=== PATIENT | female | born 1985 | race Caucasian/White ===

== ENCOUNTER → 2020-09-22 14:00 | Outpatient (REF) | payer MEDICAID, SELFPAY ==
--- NOTE | 2020-09-22 14:00 | CA_ITS ---
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 The visually estimated ejection fraction is between 50-55%. - A mechanical prosthetic mitral valve is present. Based on gradients, likely normal function. - There is mild aortic valve regurgitation. Findings Left Ventricle Normal left ventricular cavity size. There is mildly increased left ventricular wall thickness. The left ventricular systolic function is low normal. The visually estimated ejection fraction is between 50-55%. The calculated ejection fraction is 50% by biplane method. Diastolic function is indeterminate on the basis of available data. Right Ventricle Normal right ventricular cavity size. There is mild to moderately decreased right ventricular systolic function. Atria Both atria are normal in size. Aortic Valve There is a normal trileaflet aortic valve. There is mild calcification of the aortic valve. There is no aortic valve stenosis. There is mild aortic valve regurgitation. Mitral Valve A mechanical prosthetic mitral valve is present. Mean gradient across the mitral valve was 2 mm Hg at heart rate of 67/Min. This is well within normal limits. Leaflet motion is not well visualized. Due to shadowing from the prosthesis, cannot assess for regurgitation.Based on gradients, likely normal function. Pulmonic Valve The pulmonic valve was not well visualized. Tricuspid Valve Normal tricuspid valve structure. There is mild tricuspid valve regurgitation. The pulmonary artery systolic pressure is normal. Great Vessels The asc aorta is normal in size. There seems to be effacement of the sino tubular ridge. Venous The inferior vena cava is normal in size and collapses greater than 50% with inspiration. Pericardium/Pleural There is no evidence of pericardial effusion. Prior Study Comparison Changes noted compared to prior study dated: 02/26/2019. LVEF appears better. Measurements 2D Linear Measurements RVIDd: 2.64 RVIDd Index: 1.38 IVSd: 1.57 0.6-0.9/0.6-1.0 cm LVIDd: 4.36 3.9-5.3/4.2-5.9 cm LVIDd Index: 2.28 2.4-3.2/2.2-3.1 cm/m2 LVIDs: 3.22 2.0-3.6 cm LVPWd: 1.38 0.7-1.1 cm Ao Root: 3.20 2.1-3.5 cm LA Diam: 3.60 2.7-3.8/3.0-4.0 cm LAIDs Index: 1.88 1.5-2.3 cm/m2 LV Mass: 320.05 67-162/88-224 g LV Mass Index: 167.56 43-95/49-115 g/m2 LVOT Diam: 2.40 3.0+(-)1.3 cm 2D Systolic Function EF 4C: 53.90 >55% EF 2C: 50.60 >55% EF BiP: 50.10 >55% Mitral Valve MV VTI: 0.25 MV Pk Jeramie: 1.23 MV Mn Jeramie: 0.66 MV Pk Grad: 6.00 MV Mn Grad: 2.00 MV Pk E: 0.79 MV PK A: 1.10 MV Decel Time: 322.00 E/A: 0.70 PHT: 60.00 MVA PHT: 3.67 MVA Continuity: 2.38 Decel [place]: 4.24 Aortic Valve AoV Pk Jearmie: 1.00 AoV Mn Jeramie: 0.68 AoV VTI: 0.22 AoV Pk Grad: 4.00 Aov Mn Grad: 2.00 ADDY Cont.VTI: 2.60 AI Pk Jeramie: 4.71 AI [place]: 2.78 LVOT LVOT Pk Jeramie: 0.65 LVOT Mn Jeramie: 0.41 LVOT VTI: 0.13 LVOT Pk Grad: 2.00 LVOT Mn Grad: 1.00 LVOT Diam: 2.40 LVOT Area: 4.52 Diastolic Function MV Pk E: 0.79 MV Pk A: 1.10 E/A: 0.70 Tricuspid Valve TR Pk Jeramie: 2.21 TR Pk Grad: 20.00 RA Press: 3.00 RVSP: 23.00 Great Vessels Aorta Ao Root-2D: 3.20 2.0-3.7 cm Ao Asc: 3.40 2.1-3.4 cm Updated in Other Vendor System with Status of Final Brian Vance MD electronically signed on 09/23/2020 8:53:39 AM with status of Final
== END ==
LOC: HO.CARD 14:00
PROVIDERS: Visit Provider Internal Medicine
DX: I42.9 Cardiomyopathy, unspecified (principal); Q87.40 Marfan syndrome, unspecified; Z95.2 Presence of prosthetic heart valve; Z98.890 Other specified postprocedural states
CPT/HCPCS: 93306

== ENCOUNTER → 2020-10-07 12:58 | Outpatient (BNVA) | payer MEDICAID, SELFPAY | PROVIDERS: Visit Provider Internal Medicine ==

== ENCOUNTER 2020-10-28 07:57 | Outpatient (REF) | payer MEDICAID, SELFPAY ==
--- NOTE | ~2020-10-28 | CT_ITS ---
EXAMINATION: CT ANGIOGRAPHY CHEST CT ANGIOGRAPHY ABDOMEN CLINICAL INFORMATION: Dissection of aorta. COMPARISON: CT chest with IV contrast 02/28/2019 TECHNIQUE: 5 mm thin axial and reformatted 8 mm thin sagittal coronal images of chest and abdomen were obtained following rapid IV administration of 70 mL Omnipaque 350. 3D imaging was performed on a separate workstation. DLP: 294 mGy-cm FINDINGS: CHEST: Mediastinum: There is an aortic stent visualized extending from proximal ascending aorta approximately 4.0 cm above the aortic valve all the way up to the descending thoracic aorta, below the diaphragm, in the proximal abdominal aorta region. The ascending aorta measures 3.3 x 3.1 cm just below the stent. The patent lumen in the arch measures 2.5 cm and with the stent measures 3.1 cm. The descending thoracic aorta measures 4.3 x 4.3 cm and with the stent measures 3.4 x 3.7 cm. No visible contrast extension through the stents seen in the thoracic aorta. The size of the entire thoracic aorta is stable and unchanged to 02/28/2019. There is no suggestion of recurrent dissection. There is minimal thrombus surrounding the stent in the descending thoracic aorta, stable and unchanged. The heart size is normal. No pericardial effusion seen. There is a AV valve prosthesis in place. The right atrium and right ventricle appear slightly prominent, similar to previous study. There are anterolateral origins of right brachiocephalic and left common carotid artery proximal to the stent margin in ascending aorta. The left subclavian artery origin is patent and arises in between the 2 stents. There is no abnormal mediastinal lymph nodes or mass. The central trachea and the bronchi appear widely patent. The thyroid lobes are symmetrical and normal. Lungs: The lungs are well expanded and clear of acute process. Minimal atelectatic changes as seen in the left lower lobe adjacent to the aorta. Pleura: No pleural effusion, thickening or calcification. Axilla: No abnormal lymph nodes seen. The chest wall appears unremarkable. There are median sternotomy sutures from previous valvular prosthesis. Osseous Structures: No gross bony abnormality is seen. ABDOMEN: Liver and Gallbladder: The liver is homogeneous in density and normal size and contour. No focal lesion or intrahepatic ductal dilatation seen. The gallbladder is not visualized likely from previous surgical resection. Spleen: Unremarkable. Bilateral Adrenal Glands: Unremarkable. Kidneys: Both kidneys are normal size and shape. A low-lying left kidney is noted. The right kidney is normal place. There is normal cortical thickness. There is no hydronephrosis or radiopaque calculi. Vascular: There is a aortic stent extending in the proximal abdominal aorta. The mid abdominal aorta is dilated below the renal arteries measuring 4.4 x 3.5 cm on axial image 73/6. The celiac axis is patent arising at the level of the right renal artery. Superior mesenteric artery is patent and arises from anterior aspect of the aorta. Inferior mesenteric artery is small and not visualized The left renal artery arises slightly inferior related to its normal position. GLADYS artery is not visualized. Lymph Nodes There are no abnormal lymph nodes seen. GI Tract: Visualized bowel loops are grossly unremarkable. Abdominal Wall: The abdominal wall is slightly deformed likely from extensive surgery. Osseous Structures. There is mild smooth S-shaped scoliosis of the thoracolumbar spine. No lytic or sclerotic process seen. Mild degenerative disc changes at L5-S1 disc level. 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 A small Tarlov cyst is seen in the S3 vertebra as well. CT/CT angio abdomen IMPRESSION: 1. Aortic stent extends from the proximal ascending aorta all the way into the proximal abdominal aorta. No recurrent dissection or aneurysm is seen dissection. Origins of thoracic arch are widely patent. 2. Origin of bilateral renal arteries, celiac axis and superior mesenteric artery are widely patent. The GLADYS is not well visualized. 3. Minimal atelectatic changes, left lower lobe. 4. No acute process seen in the abdomen. 5. Mild constipation. The gallbladder has been surgically removed.
[2020-10-28] MEDS: iohexoL 350 MG/ML 100 ML INFUS..BTL IV (08:53)
== END 2020-10-28 07:58 | disposition home or self-care (01) ==
LOC: HO.CT 07:57
PROVIDERS: Visit Provider Internal Medicine
DX: I71.00 Dissection of unspecified site of aorta (principal)
CPT/HCPCS: 71275; 74175; Q9967

== ENCOUNTER → 2021-05-13 14:32 | Outpatient (BNVA) | payer MEDICAID, SELFPAY | PROVIDERS: PCP Internal Medicine; Visit Provider Internal Medicine ==

== ENCOUNTER → 2021-11-02 14:39 | Outpatient (BNVA) | payer MEDICAID, SELFPAY | PROVIDERS: PCP Internal Medicine; Visit Provider Internal Medicine | DX: I42.8 Other cardiomyopathies (principal); I71.00 Dissection of unspecified site of aorta; I48.0 Paroxysmal atrial fibrillation; I95.0 Idiopathic hypotension; Q87.40 Marfan syndrome, unspecified; Z79.01 Long term (current) use of anticoagulants; Z79.82 Long term (current) use of aspirin; Z79.899 Other long term (current) drug therapy; Z86.73 Personal history of transient ischemic attack (TIA), and cerebral infarction without residual deficits; Z95.4 Presence of other heart-valve replacement | CPT/HCPCS: 93005; 99212 ==

== ENCOUNTER → 2022-04-21 08:36 | Outpatient (REF) | payer MEDICAID, SELFPAY ==
--- NOTE | ~2022-04-21 | CT_ITS ---
EXAMINATION: CT ANGIOGRAM OF THE CHEST, ABDOMEN WITHOUT AND WITH CONTRAST CLINICAL INFORMATION: Thoracic and abdominal aortic aneurysm. History of dissection. History of aortic stent graft COMPARISON: CTA chest from 10/28/2020 TECHNIQUE: Multidetector volumetric CT imaging of the chest, abdomen, and pelvis was performed before and after the administration of 70 mL of Omnipaque 350 intravenous contrast without immediate adverse reactions. 3D POSTPROCESSING: Multiple 3-D angiographic images were processed from the initial data set by the [facility] under concurrent physician supervision. DOSE LOWERING TECHNIQUES: This CT examination was performed using dose optimization techniques as appropriate, variously including the following: - Automated exposure control - Adjustment of mA and/or kV according to patient size (this includes techniques or standardized protocols for targeted exams where dose is matched to indication/reason for exam; i.e. extremities or head) - Use of iterative reconstruction technique DLP: 230 mGy-cm. FINDINGS: VASCULAR: THORACIC AORTA: Postsurgical and post endovascular changes within the ascending thoracic aorta which is stable in appearance. Postsurgical changes seen at the aortic root and proximal ascending thoracic aorta. There is reimplantation of the right brachiocephalic artery and left common carotid artery to the proximal ascending thoracic aorta which are widely patent. Thoracic stent graft is seen extending from the mid ascending thoracic aorta through the aortic arch and descending thoracic aorta terminating in the proximal abdominal aorta just below the level the diaphragms. Stent graft is in stable position and widely patent. There is some mural thrombus seen within the stent graft at the level the aortic arch which is unchanged. The ostium of the left subclavian artery is occluded. There is a left common carotid artery to proximal left subclavian artery bypass graft which is widely patent. The mid and distal segments of the left subclavian artery are widely patent. The descending thoracic aorta demonstrates aneurysmal dilation with residual thrombus within the aneurysm sac. There is no evidence of endoleak. Aneurysm has a maximum diameter of 6.1 cm on the transaxial images. The aneurysm is increased in size, previously measuring 4.9 cm on the transaxial images. ABDOMINAL AORTA: Abdominal aorta is tortuous with fusiform juxtarenal aortic aneurysm. Aneurysm has a maximum diameter 4.4 cm, which is stable compared to the prior exam. The celiac artery, superior mesenteric artery and bilateral renal arteries are patent without significant stenosis. Inferior mesenteric artery appears chronically occluded. No evidence of dissection. Visualized common iliac arteries are patent NONVASCULAR: LUNGS: The lungs are clear with no evidence of inflammation or nodules. MEDIASTINUM: Heart is mildly enlarged. There is a prosthetic mitral valve. No mediastinal lymphadenopathy PLEURA: There is no pleural effusion. No pleural mass or thickening. LIVER, GALLBLADDER, AND BILIARY TREE: The liver is normal in size, shape, and attenuation. No focal hepatic lesion or biliary ductal dilatation is present. Status post cholecystectomy PANCREAS: Unremarkable. SPLEEN: Unremarkable. ADRENAL GLANDS: Unremarkable. KIDNEYS AND URETERS: The kidneys are normal in size, shape, and attenuation. No hydronephrosis, hydroureter, or calculi seen. No perinephric stranding. GASTROINTESTINAL TRACT: The visualized bowel loops are unremarkable ABDOMINAL WALL: Postsurgical scarring is seen along the midline of the anterior abdominal wall. There is a large [place] ventral wall hernia containing loops of bowel LYMPH NODES: Normal. OSSEOUS STRUCTURES: Unremarkable. CT/CT angio chest aorta IMPRESSION: Stable postsurgical changes within the ascending thoracic aorta including the branch vessels as described above. Thoracic stent graft extending from the ascending thoracic aorta through the descending thoracic aorta is patent. There is fusiform aneurysm of the descending thoracic aorta which is increasing in size, currently measuring 6.1 cm, previously 4.9 cm. No evidence of obvious endoleak Fusiform juxtarenal abdominal aortic aneurysm which is stable in size measuring 4.4 cm.
--- NOTE | 2022-04-21 08:38 | CA_ITS ---
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 Low normal LV systolic function with mild LVH with impaired relaxation filling pattern 2. Mild aortic regurgitation 3. Normally function mechanical mitral prosthesis with mean gradient of 2 mmHg 4. Normal RV systolic pressure 5. No gross pericardial effusion Findings Left Ventricle Normal left ventricular cavity size. There is mildly increased left ventricular wall thickness. The left ventricular systolic function is low normal. The visually estimated ejection fraction is between 50-55%. There is paradoxical septal motion consistent with post-operative status. Spectral Doppler is indicative of an impaired relaxation filling pattern. Right Ventricle Mildly increased right ventricular cavity size. There is normal right ventricular systolic function. Atria The left atrium is mildly dilated. Interatrial shunt cannot be excluded. The right atrium is mildly dilated. Aortic Valve Normal aortic valve structure and function. There is no aortic valve stenosis. There is mild aortic valve regurgitation. Mitral Valve A mechanical prosthetic mitral valve is present. The prosthetic mitral valve appears to be functioning normally. Pulmonic Valve The pulmonic valve was not well visualized. Tricuspid Valve Likely normal tricuspid valve structure and function. There is mild tricuspid valve regurgitation. The right ventricular systolic pressure is 18 mmHg. There is no evidence of pulmonary hypertension. Great Vessels All visible segments of the aorta are normal in size. The pulmonary artery was not well visualized. Venous The inferior vena cava is normal in size. Pericardium/Pleural There is no evidence of pericardial effusion. Prior Study Comparison No significant change compared to prior study dated: 09/22/2020. Measurements 2D Linear Measurements IVSd: 1.34 0.6-0.9/0.6-1.0 cm LVIDd: 4.13 3.9-5.3/4.2-5.9 cm LVIDd Index: 2.16 2.4-3.2/2.2-3.1 cm/m2 LVIDs: 2.75 2.0-3.6 cm LVPWd: 1.32 0.7-1.1 cm LV Mass: 286.52 67-162/88-224 g LV Mass Index: 150.01 43-95/49-115 g/m2 LVOT Diam: 2.40 3.0+(-)1.3 cm 2D Systolic Function EF 4C: 47.00 >55% EF 2C: 57.30 >55% EF BiP: 51.80 >55% Mitral Valve MV VTI: 0.35 MV Pk Jeramie: 1.11 MV Mn Jeramie: 0.63 MV Pk Grad: 5.00 MV Mn Grad: 2.00 MV Pk E: 0.82 MV PK A: 0.70 MV Decel Time: 338.00 E/A: 1.20 E'Lateral: 6.20 E'Medial: 5.98 E/E' Med: 13.80 E/E' Lat: 13.30 PHT: 99.00 MVA PHT: 2.22 MVA Continuity: 2.38 Decel [place]: 2.43 Aortic Valve AoV Pk Jeramie: 1.07 AoV Mn Jeramie: 0.76 AoV VTI: 0.27 AoV Pk Grad: 5.00 Aov Mn Grad: 3.00 ADDY Cont.VTI: 3.05 AI Pk Jeramie: 4.18 AI [place]: 2.06 LVOT LVOT Pk Jeramie: 0.66 LVOT Mn Jeramie: 0.45 LVOT VTI: 0.18 LVOT Pk Grad: 2.00 LVOT Mn Grad: 1.00 LVOT Diam: 2.40 LVOT Area: 4.52 Diastolic Function MV Pk E: 0.82 MV Pk A: 0.70 E/A: 1.20 E'Medial: 5.98 E/E' Med: 13.80 E' Laterial: 6.20 E/E' Lat: 13.30 Right Ventricle TAPSE (mm): 20.40 TVS' Jeramie: 8.81 Tricuspid Valve TR Pk Jeramie: 1.92 TR Pk Grad: 15.00 RA Press: 3.00 RVSP: 18.00 Great Vessels Aorta Sinus of Valsalva: 3.70 2.0-3.[address] [place]: 3.31 1.7-3.4 cm Ao Asc: 3.50 2.1-3.4 cm Updated in Other Vendor System with Status of Final Jeffrey Walls MD electronically signed on 04/22/2022 4:56:20 PM with status of Final
== END ==
LOC: HO.CARD 08:36
PROVIDERS: PCP Internal Medicine; Visit Provider Internal Medicine
DX: I71.00 Dissection of unspecified site of aorta (principal); Z95.4 Presence of other heart-valve replacement
CPT/HCPCS: 71275; 74175; 93306

== ENCOUNTER → 2022-06-07 10:26 | Outpatient (BNVA) | payer MEDICAID, SELFPAY | PROVIDERS: PCP Internal Medicine; Visit Provider Surgery Vascular Surgery | DX: I71.00 Dissection of unspecified site of aorta (principal) | CPT/HCPCS: 99202 ==

== ENCOUNTER → 2022-06-23 14:24 | Outpatient (BNVA) | payer MEDICAID, SELFPAY | PROVIDERS: PCP Internal Medicine; Visit Provider Internal Medicine | DX: I42.8 Other cardiomyopathies (principal); I48.0 Paroxysmal atrial fibrillation; I71.23 Aneurysm of the descending thoracic aorta, without rupture; Q87.40 Marfan syndrome, unspecified; Z86.73 Personal history of transient ischemic attack (TIA), and cerebral infarction without residual deficits; Z95.4 Presence of other heart-valve replacement; Z79.01 Long term (current) use of anticoagulants; Z79.82 Long term (current) use of aspirin; Z79.899 Other long term (current) drug therapy | CPT/HCPCS: 99212 ==

== ENCOUNTER 2023-06-05 14:27 | Outpatient (AMB) | payer MEDICAID, SELFPAY ==
[2023-06-05 14:32] VITALS: BP 90/58; PULSE 58; BMI 24.3
--- NOTE | 2023-06-05 14:32 | MHC.OFFVIS ---
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 Fairly complex history with Marfan syndrome and various cardiac and vascular issues. To recall, she has Marfan syndrome and had symptomatic severe mitral regurgitation. This led to mitral valve replacement in 2015. She was doing reasonably okay but had an episode of stroke. This apparently happened in the setting of missing a few Coumadin doses from lack of transport. Then she was taken to [facility]. She recovered well without any significant residual deficit. She has had off and on symptoms of feeling short of breath and has been this way for a long time. More recently, she had CT scan of chest abdomen that showed enlargement in the descending thoracic aorta and she was sent to [facility]. She states nothing was done and she just needed to go for a follow-up in 1 year which is coming up soon. Otherwise, occasional palpitations. [facility] Medical History Arterial hypotension Cholecystectomy planned Embolic stroke Marfans syndrome NICM (nonischemic cardiomyopathy) PAF (paroxysmal atrial fibrillation) Surgical History H/O eye surgery Status post mitral valve replacement with metallic valve History of cardiac catheterization History of abdominal aortic aneurysm repair History of aortic valve repair History of mitral valve replacement (~2015) Family History Father CVD (cardiovascular disease) Mother Hypertension Social History Household Members: Significant Other and Children Household Members Other:: Boyfriend and son Housing: Apartment Alcohol intake: never Patient Tobacco Use Status: Never used Tobacco Review of Systems Const Denies weakness ENT Denies dizziness Card Denies chest pain, Denies chest pain with activity, Denies syncope, Denies rapid heart rate, Denies pedal edema, Denies edema, Denies leg edema, Denies lightheadedness, Denies palpitations, Denies dyspnea, Denies dyspnea on exertion and Denies orthopnea Resp Denies cough, Denies dyspnea and Denies dyspnea on exertion GI Denies hematochezia and Denies change in stool character Musc Denies abnormal gait, Denies muscle cramps, Denies muscle weakness, Denies numbness, Denies radiating pain into limb and Denies tingling Neuro Denies abnormal gait, Denies dizziness, Denies syncope, Denies numbness, Denies tingling and Denies weakness Endo Denies palpitations Physical Exam Vital Signs: Last Vital Signs Pulse 58 06/05/23 14:32 BP 90/58 L 06/05/23 14:32 BMI result Body Mass Index 24.3 Const General: comfortable HEENT Other: Unremarkable Neck Neck: Yes normal visual inspection Chest Chest palpation & inspection: normal inspection of the chest Resp Auscultation: clear to auscultation bilaterally Cardio Other: Normal prosthetic valve clicks. Heart sounds: Murmur heart sound present systolic III/ GI Palpation (GI): Soft to palpation Back/Spine/Pelvis Other: unremarkable Skin Lesions: other Neuro General: other Extrem General: Yes other Psych Mental Status: other Assessment & Plan Assessment & Plan (1) Marfans syndrome: Code(s): Q87.40 - Marfan's syndrome, unspecified Plan: She has multiple clinical findings of Marfan syndrome. Will need lifelong follow-up. Should avoid all future pregnancies. (2) Status post mitral valve replacement with metallic valve: Code(s): Z95.4 - Presence of other heart-valve replacement Plan: Last echocardiogram with normally functioning mitral prosthesis with mean gradient of 2 mm Hg. Continue aspirin, Coumadin. Infective endocarditis prophylaxis as needed. (3) Dissection of aorta: Code(s): I71.00 - Dissection of unspecified site of aorta Qualifiers: Aortic location: thoracoabdominal aorta Qualified Code(s): I71.03 - Dissection of thoracoabdominal aorta Plan: She was previously referred to [facility] vascular surgery. Per patient, recommended follow-up only and no interventions performed. Will contact them for a follow-up appointment. (4) NICM (nonischemic cardiomyopathy): Code(s): I42.8 - Other cardiomyopathies Plan: In the recent echocardiogram, LVEF was 50-55%. In the past as low as 30-40%. Continue beta-blockers. Not able to give any other medications like Entresto as she also runs very low blood pressures. Also listed to be on midodrine as needed. (5) PAF (paroxysmal atrial fibrillation): Code(s): I48.0 - Paroxysmal atrial fibrillation Plan: No recent episodes. (6) Embolic stroke: Code(s): I63.9 - Cerebral infarction, unspecified Plan: This happened in the setting of missing some Coumadin doses due to lack of transport. INR during admission was 1.7. Target should be closer to 3. CTA had then shown abrupt right M1 cut off. Attempted interventional treatment but not successful. She was intubated and treated in the ICU. CT brain had shown infarct in the right side MCA territory. Blood cultures were negative. ESR not elevated. Mild CRP elevation considered to be nonspecific. No recent issues. Orders: Orders CA echo transthoracic complete Today Z95.4 - Presence of other heart-valve replacement Medications: Changed From midodrine do not give last dose of day after 6PM or within 4 hrs of bedtime 10 mg PO BID 90 days PRN 180 tabs 1RF hypotension To midodrine do not give last dose of day after 6PM or within 4 hrs of bedtime 10 mg PO BID PRN hypotension Coding Level of Care Code Est Pt Level 4 (22461) Diagnoses Marfans syndrome Q87.40 Status post mitral valve replacement with metallic valve Z95.4 Dissection of thoracoabdominal aorta I71.03 Aortic location: thoracoabdominal aorta NICM (nonischemic cardiomyopathy) I42.8 PAF (paroxysmal atrial fibrillation) I48.0 Embolic stroke I63.9
== END 2023-06-05 14:51 | disposition home or self-care (01) ==
PROVIDERS: PCP Internal Medicine; Referring Provider Internal Medicine; Visit Provider Internal Medicine
DX: Q87.40 Marfan syndrome, unspecified (principal); Z95.4 Presence of other heart-valve replacement; I71.03 Dissection of thoracoabdominal aorta; I42.8 Other cardiomyopathies; I48.0 Paroxysmal atrial fibrillation; I63.9 Cerebral infarction, unspecified
CPT/HCPCS: 93010; 99214

== ENCOUNTER → 2023-06-05 14:27 | Outpatient (BNVA) | payer MEDICAID, SELFPAY | PROVIDERS: PCP Internal Medicine; Referring Provider Internal Medicine; Visit Provider Internal Medicine | DX: I71.03 Dissection of thoracoabdominal aorta (principal); I42.8 Other cardiomyopathies; I48.0 Paroxysmal atrial fibrillation; Z95.4 Presence of other heart-valve replacement; I63.9 Cerebral infarction, unspecified | CPT/HCPCS: 93005; 99212 ==

== ENCOUNTER → 2023-07-04 12:45 | Outpatient (REF) | payer MEDICAID, SELFPAY ==
--- NOTE | 2023-07-04 12:47 | CA_ITS ---
Transthoracic Echocardiogram Patient (Last, First, Middle): Lupis Abdul, Gender: Female Date of : 1985 Age: 37 Procedure Date: 07/04/2023 Procedure Type: Transthoracic Echocardiogram Location: OP Height: 172.72 cm Weight: 72.58 kg BSA: 1.86 m2 Heart Rate: 61 bpm BP: 102 / 68 mmHg Transportation Department Head: SB Referring MD: Brian Vance MD Symptoms: Z95.4 - Presence of other heart-valve replacement Study Quality: Adequate ECG Rhythm: Sinus Conclusions: - The left ventricular systolic function is mildly decreased. The calculated ejection fraction is 45% by biplane method. - A mechanical prosthetic mitral valve is present. The prosthetic mitral valve appears to be functioning normally. - Echo density 1.1 x 0.9cm at apical anterior wall; cannot exclude thrombus. Findings Procedure Information Contrast agent, definity, is being given per protocol without apparent complications. Left Ventricle Normal left ventricular cavity size. The left ventricular systolic function is mildly decreased. The calculated ejection fraction is 45% by biplane method. There is mild global hypokinesis. Diastolic function is indeterminate on the basis of available data. There is moderate septal asymmetric hypertrophy. Echo density 1.1 x 0.9cm at apical anterior wall; cannot exclude thrombus. Right Ventricle Mildly increased right ventricular cavity size. There is mildly decreased right ventricular systolic function. Atria The left atrium was not well visualized. The right atrium is normal in size. Aortic Valve There is a normal trileaflet aortic valve. There is no aortic valve stenosis. There is mild aortic valve regurgitation. Mitral Valve A mechanical prosthetic mitral valve is present. The prosthetic mitral valve appears to be functioning normally. Pulmonic Valve The pulmonic valve is likely normal. Tricuspid Valve There is mild tricuspid valve regurgitation. There is no evidence of pulmonary hypertension. Great Vessels The aorta was not well visualized. The aortic annulus and sinuses of valsalva are normal in size. Venous The inferior vena cava was not well visualized. Pericardium/Pleural There is no evidence of pericardial effusion. Prior Study Comparison Changes noted compared to prior study dated: 04/21/2022. See comments on thrombus. Possibly seen in last study (image 104), but without contrast, difficult to be sure. Measurements 2D Linear Measurements IVSd: 1.31 0.6-0.9/0.6-1.0 cm LVIDd: 4.55 3.9-5.3/4.2-5.9 cm LVIDd Index: 2.45 2.4-3.2/2.2-3.1 cm/m2 LVIDs: 3.22 2.0-3.6 cm LVPWd: 0.85 0.7-1.1 cm LA Diam: 4.50 2.7-3.8/3.0-4.0 cm LAIDs Index: 2.42 1.5-2.3 cm/m2 LV Mass: 216.37 67-162/88-224 g LV Mass Index: 116.33 43-95/49-115 g/m2 LVOT Diam: 2.40 3.0+(-)1.3 cm 2D Systolic Function EF 4C: 40.10 >55% EF 2C: 48.70 >55% EF BiP: 44.70 >55% Mitral Valve MV VTI: 0.29 MV Pk Jeramie: 0.99 MV Mn Jeramie: 0.63 MV Pk Grad: 4.00 MV Mn Grad: 2.00 MV Pk E: 1.07 MV PK A: 0.79 MV Decel Time: 277.00 E/A: 1.40 PHT: 81.00 MVA PHT: 2.72 MVA Continuity: 1.90 Decel Swisher: 3.87 Aortic Valve AoV Pk Jeramie: 1.04 AoV Mn [place]amie: 0.69 AoV VTI: 0.23 AoV Pk Grad: 4.00 Aov Mn Grad: 2.00 ADDY Cont.VTI: 2.35 AI Pk Jeramie: 4.44 AI VTI: 2.09 AI Swisher: 2.55 LVOT LVOT Pk [place]amie: 0.55 LVOT Mn [place]amie: 0.40 LVOT VTI: 0.12 LVOT Pk Grad: 1.00 LVOT Mn Grad: 1.00 LVOT Diam: 2.40 LVOT Area: 4.52 Diastolic Function MV Pk E: 1.07 MV Pk A: 0.79 E/A: 1.40 Right Ventricle TAPSE (mm): 13.20 TVS' Jeramie: 10.00 Tricuspid Valve TR Pk [place]amie: 2.26 TR Pk Grad: 20.00 RA Press: 3.00 Great Vessels Aorta Sinus of Valsalva: 3.40 2.0-3.5 cm Ao Asc: 3.70 2.1-3.4 cm Pulmonary Valve PV Pk Jeramie: 0.56 Peak PV Grad: 1.00 Updated in Other Vendor System with Status of Final Brian Vance MD electronically signed on 07/06/2023 4:26:20 PM with status of Final
== END ==
LOC: HO.CARD 12:45
PROVIDERS: PCP Internal Medicine; Visit Provider Internal Medicine
DX: Z95.4 Presence of other heart-valve replacement (principal)
CPT/HCPCS: 93306; Q9957

== ENCOUNTER → 2023-07-04 12:47 | Outpatient (BNV) | payer MEDICAID, SELFPAY | PROVIDERS: PCP Internal Medicine; Visit Provider Internal Medicine | DX: I35.1 Nonrheumatic aortic (valve) insufficiency (principal); I36.1 Nonrheumatic tricuspid (valve) insufficiency; Z95.4 Presence of other heart-valve replacement | CPT/HCPCS: 93306 ==

== ENCOUNTER 2023-08-15 14:32 | Outpatient (AMB) | payer MEDICAID, SELFPAY ==
[2023-08-15 14:38] VITALS: BP 100/72; PULSE 72; BMI 24.1
--- NOTE | 2023-08-15 14:38 | A.OFFVIS_ITS ---
Intake Vital Signs 08/15/23 14:38 Height 5 ft 8 in Weight 158 lb 11.725 oz BMI 24.1 BP 100/72 Blood Pressure Location Lt brachial Position Sitting Pulse 72 Pulse Source Pulse Oximeter Intake Visit Reasons: follow up echo Intake Note: follow up echo/ patient started with slight chest pain 2 days ago. 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 She has had an increase in SOB and recently had a pain in her left side that has slowly gotten better. Relieved with tylenol. She does not appear fluid overloaded. [facility] Medical History Arterial hypotension Cholecystectomy planned Embolic stroke Marfans syndrome NICM (nonischemic cardiomyopathy) PAF (paroxysmal atrial fibrillation) Surgical History H/O eye surgery Status post mitral valve replacement with metallic valve History of cardiac catheterization History of abdominal aortic aneurysm repair History of aortic valve repair History of mitral valve replacement (~2015) Family History Father CVD (cardiovascular disease) Mother Hypertension Social History Household Members: Significant Other and Children Household Members Other:: Boyfriend and son Housing: Apartment Alcohol intake: never Patient Tobacco Use Status: Never used Tobacco Physical Exam Vital Signs: Last Vital Signs Pulse 72 08/15/23 14:38 BP 100/72 08/15/23 14:38 BMI result Body Mass Index 24.1 Const General: healthy appearing and no acute distress Orientation/consciousness: patient oriented x3 HEENT Head: Yes normal to inspection Eyes General: appearance normal, both eyes and all related structures Neck Neck: Yes normal visual inspection Chest Chest palpation & inspection: normal inspection of the chest Resp Effort & Inspection: normal respiratory effort Auscultation: clear to auscultation bilaterally Cardio Jugular venous distension: no JVD Palpation: normal PMI Rate: regular rate Rhythm: regular rhythm Heart sounds: S1 normal heart sound present, S2 normal heart sound present, no click, no gallops, no murmurs and no rubs GI Inspection: Yes normal to inspection Palpation (GI): Soft to palpation Skin General skin exam: no rashes or lesions noted Neuro General: patient oriented x3 Extrem General: Yes normal to inspection Psych Appearance: grossly normal Assessment & Plan Assessment & Plan (1) Dissection of aorta: Code(s): I71.00 - Dissection of unspecified site of aorta (2) Marfans syndrome: Code(s): Q87.40 - Marfan syndrome, unspecified Plan She is going to touch base with [facility] in regards to her care and return as planned to see Dr. Vance in November. Coding Level of Care Code Est Pt Level 3 (79041) Diagnoses Dissection of aorta I71.00 Marfans syndrome Q87.40
== END 2023-08-15 15:25 | disposition home or self-care (01) ==
PROVIDERS: PCP Internal Medicine; Visit Provider Nurse Practitioner
DX: I71.00 Dissection of unspecified site of aorta (principal); Q87.40 Marfan syndrome, unspecified
CPT/HCPCS: 99213

== ENCOUNTER → 2023-08-15 14:32 | Outpatient (BNVA) | payer MEDICAID, SELFPAY | PROVIDERS: PCP Internal Medicine; Visit Provider Nurse Practitioner | DX: I71.00 Dissection of unspecified site of aorta (principal); Q87.40 Marfan syndrome, unspecified | CPT/HCPCS: 99212 ==

== ENCOUNTER 2024-11-11 14:44 | Outpatient (AMB) | payer MEDICAID, SELFPAY ==
--- NOTE | 2024-11-11 14:45 | A.OFFVIS_ITS ---
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 Fairly complex history with Marfan syndrome and various cardiac and vascular issues. We have followed her for the last decade or so. To recall, she has Marfan syndrome and had symptomatic severe mitral regurgitation. This led to mitral valve replacement in 2015. She was doing reasonably okay but had an episode of stroke. This apparently happened in the setting of missing a few Coumadin doses from lack of transport. Then she was taken to [facility]. She recovered well without any significant residual deficit. S Then we referred her to [facility] for follow-up of the thoracic aneurysm. It seems that she underwent surgery for the same last year. States that she recovered well. No new concerns at this time. From cardiac, she is doing good. In spite of all her medical issues, seems to be generally getting along. [facility] Medical History Arterial hypotension Cholecystectomy planned Embolic stroke Marfans syndrome NICM (nonischemic cardiomyopathy) PAF (paroxysmal atrial fibrillation) Surgical History H/O eye surgery Status post mitral valve replacement with metallic valve History of cardiac catheterization History of abdominal aortic aneurysm repair History of aortic valve repair History of mitral valve replacement (~2015) Family History Father CVD (cardiovascular disease) Mother Hypertension Social History Household Members: Significant Other and Children Household Members Other:: Boyfriend and son Housing: Apartment Alcohol intake: never Patient Tobacco Use Status: Never used Tobacco Review of Systems Const Denies chills, Denies fatigue, Denies fever(s), Denies weight gain and Denies weight loss ENT Denies dizziness Card Denies chest pain, Denies leg edema, Denies lightheadedness, Denies palpitations, Reports dyspnea, Denies dyspnea on exertion, Denies orthopnea and Denies other Resp Denies cough, Reports dyspnea and Denies dyspnea on exertion GI Denies hematochezia and Denies change in stool character Musc Denies abnormal gait, Denies muscle weakness, Denies numbness, Denies radiating pain into limb and Denies tingling Neuro Denies abnormal gait, Denies dizziness, Denies numbness and Denies tingling Endo Denies fatigue and Denies palpitations Physical Exam Vital Signs: Last Vital Signs Pulse 77 11/11/24 14:46 BP 134/54 L 11/11/24 14:46 BMI result Body Mass Index 25.1 Const General: comfortable and no acute distress Orientation/consciousness: patient oriented x3 HEENT Other: Unremarkable Head: Yes normal to inspection Neck Neck: Yes normal visual inspection Chest Chest palpation & inspection: normal inspection of the chest Resp Auscultation: clear to auscultation bilaterally Cardio Other: Prosthetic heart sounds present. Heart sounds: Murmur heart sound present systolic GI Palpation (GI): Soft to palpation Back/Spine/Pelvis Other: unremarkable Skin General skin exam: no rashes or lesions noted Neuro General: patient oriented x3 Extrem General: Yes normal to inspection Psych Mental Status: mental status grossly normal Office Procedures EKG Details: EKG with underlying sinus rhythm at 77/Min; cannot exclude old septal infarct but could be from body habitus; [place] [id number], Complete Assessment & Plan Assessment & Plan (1) Marfans syndrome: Code(s): Q87.40 - Marfan syndrome, unspecified Category: Medical Plan: She has multiple clinical findings of Marfan syndrome. Will need lifelong follow-up. Should avoid all future pregnancies. We discussed about this today as well. (2) Status post mitral valve replacement with metallic valve: Code(s): Z95.4 - Presence of other heart-valve replacement Category: Surgical Plan: Last echocardiogram with normally functioning mitral prosthesis with mean gradient of 2 mm Hg. Continue aspirin, Coumadin. Infective endocarditis prophylaxis as needed. Repeat echocardiogram. (3) Dissection of aorta: Code(s): I71.00 - Dissection of unspecified site of aorta Plan: Follow up with vascular surgery at [facility] [place]. In 2023, underwent endovascular repair of thoracic aorta at [facility]. (4) NICM (nonischemic cardiomyopathy): Code(s): I42.8 - Other cardiomyopathies Category: Medical Plan: In the last echocardiogram, LVEF was 50-55%. In the past as low as 30-40%. Continue beta-blockers. Not able to give any other medications like Entresto as she also runs very low blood pressures. Was also taking midodrine in the past but not listed anymore. Today's blood pressure seems okay. (5) PAF (paroxysmal atrial fibrillation): Code(s): I48.0 - Paroxysmal atrial fibrillation Category: Medical Plan: No recent episodes. (6) Embolic stroke: Code(s): I63.9 - Cerebral infarction, unspecified Category: Medical Plan: This happened in the setting of missing some Coumadin doses due to lack of transport. INR during admission was 1.7. Target should be closer to 3. CTA had then shown abrupt right M1 cut off. Attempted interventional treatment but not successful. She was intubated and treated in the ICU. CT brain had shown infarct in the right side MCA territory. Blood cultures were negative. ESR not elevated. Mild CRP elevation considered to be nonspecific. No recent issues. Orders: Orders CA echo transthoracic complete Today Z95.4 - Presence of other heart-valve replacement Coding Level of Care Code Est Pt Level 4 (14938) Complex EM visit Add On G2211 Diagnoses Marfans syndrome Q87.40 Status post mitral valve replacement with metallic valve Z95.4 Dissection of aorta I71.00 NICM (nonischemic cardiomyopathy) I42.8 PAF (paroxysmal atrial fibrillation) I48.0 Embolic stroke I63.9 CPT Codes EKG - CPT: 38801-[id number], Complete ([id number])
[2024-11-11 14:46] VITALS: BP 134/54; PULSE 77; BMI 25.1
== END 2024-11-11 15:07 | disposition home or self-care (01) ==
PROVIDERS: PCP Internal Medicine; Visit Provider Internal Medicine
DX: Q87.40 Marfan syndrome, unspecified (principal); Z95.4 Presence of other heart-valve replacement; I71.00 Dissection of unspecified site of aorta; I42.8 Other cardiomyopathies; I48.0 Paroxysmal atrial fibrillation; I63.9 Cerebral infarction, unspecified
CPT/HCPCS: 93010; 99214; G2211

== ENCOUNTER → 2024-11-11 14:44 | Outpatient (BNVA) | payer MEDICAID, SELFPAY | PROVIDERS: PCP Internal Medicine; Visit Provider Internal Medicine | DX: Q87.40 Marfan syndrome, unspecified (principal); I71.00 Dissection of unspecified site of aorta; I42.8 Other cardiomyopathies; I48.0 Paroxysmal atrial fibrillation; I63.9 Cerebral infarction, unspecified; Z95.4 Presence of other heart-valve replacement; Z79.01 Long term (current) use of anticoagulants | CPT/HCPCS: 93005; 99212 ==

== ENCOUNTER → 2024-12-24 14:58 | Outpatient (REF) | payer MEDICAID, SELFPAY ==
--- NOTE | 2024-12-24 15:01 | CA_ITS ---
Transthoracic Echocardiogram Patient (Last, First, Middle): Lupis Abdul, Gender: Female Date of : 1985 Age: 39 Procedure Date: 12/24/2024 Procedure Type: Transthoracic Echocardiogram Location: OP Height: 172.72 cm Weight: 74.84 kg BSA: 1.88 m2 Heart Rate: 69 bpm BP: 134 / 60 mmHg Joint Filler: SB Referring MD: Brian Vance MD Symptoms: Z95.4 - Presence of other heart-valve replacement Study Quality: Adequate ECG Rhythm: Sinus Conclusions: - The left ventricular systolic function is mildly decreased. The calculated ejection fraction is 50% by biplane method. - A mechanical prosthetic mitral valve is present. The prosthetic mitral valve appears to be functioning normally. Findings Procedure Information Contrast agent, definity, is being given per protocol without apparent complications. Left Ventricle Normal left ventricular cavity size. The left ventricular systolic function is mildly decreased. The calculated ejection fraction is 50% by biplane method. There is mild global hypokinesis. There is mild septal asymmetric hypertrophy. Echodensity at the apical anterior wall (1.2x0.8cm); uncertain etiology; possible old thrombus. Unchanged from prior study. Right Ventricle Normal right ventricular cavity size. There is mildly decreased right ventricular systolic function. Atria The left atrium is normal in size. The right atrium is normal in size. Aortic Valve There is a normal trileaflet aortic valve. There is no aortic valve stenosis. There is mild aortic valve regurgitation. Mitral Valve A mechanical prosthetic mitral valve is present. The prosthetic mitral valve appears to be functioning normally. There is no mitral valve regurgitation. Pulmonic Valve The pulmonic valve is likely normal. Tricuspid Valve Normal tricuspid valve structure. There is mild tricuspid valve regurgitation. There is no evidence of pulmonary hypertension. Great Vessels The asc aorta is normal in size. Venous The inferior vena cava was not well visualized. Pericardium/Pleural There is no evidence of pericardial effusion. Prior Study Comparison No significant change compared to prior study dated: 07/04/2023. Measurements 2D Linear Measurements IVSd: 1.26 0.6-0.9/0.6-1.0 cm LVIDd: 4.65 3.9-5.3/4.2-5.9 cm LVIDd Index: 2.47 2.4-3.2/2.2-3.1 cm/m2 LVIDs: 3.29 2.0-3.6 cm LVPWd: 0.80 0.7-1.1 cm LA Diam: 4.10 2.7-3.8/3.0-4.0 cm LAIDs Index: 2.18 1.5-2.3 cm/m2 LV Mass: 209.49 67-162/88-224 g LV Mass Index: 111.43 43-95/49-115 g/m2 LVOT Diam: 3.10 3.0+(-)1.3 cm 2D Systolic Function EF 4C: 42.80 >55% EF 2C: 55.40 >55% EF BiP: 50.10 >55% Mitral Valve MV VTI: 0.19 MV Pk Jeramie: 1.02 MV Mn Jeramie: 0.62 MV Pk Grad: 4.00 MV Mn Grad: 2.00 MV Pk E: 0.66 MV PK A: 0.80 MV Decel Time: 153.00 E/A: 0.80 PHT: 45.00 MVA PHT: 4.89 MVA Continuity: 3.71 Decel [place]: 4.32 Aortic Valve AoV Pk Jeramie: 0.88 AoV Pk Grad: 3.00 ADDY: 4.10 AI Pk Jeramie: 4.38 AI [place]: 2.81 LVOT LVOT Pk Jeramie: 0.52 LVOT Mn Jeramie: 0.37 LVOT VTI: 0.09 LVOT Pk Grad: 1.00 LVOT Mn Grad: 1.00 LVOT Diam: 3.10 LVOT Area: 7.55 Diastolic Function MV Pk E: 0.66 MV Pk A: 0.80 E/A: 0.80 Right Ventricle TAPSE (mm): 17.50 Tricuspid Valve TR Pk Jeramie: 2.12 TR Pk Grad: 18.00 RA Press: 3.00 RVSP: 21.00 Great Vessels Aorta Sinus of Valsalva: 3.40 2.0-3.5 cm Ao Asc: 2.90 2.1-3.4 cm Pulmonary Valve PV Pk Jeramie: 0.65 Peak PV Grad: 2.00 Updated in Other Vendor System with Status of Final Brian Vance MD electronically signed on 12/25/2024 1:13:36 PM with status of Final
== END ==
LOC: HO.CARD 14:58
PROVIDERS: PCP Internal Medicine; Visit Provider Internal Medicine
DX: Z95.4 Presence of other heart-valve replacement (principal)
CPT/HCPCS: 93306; Q9957

== ENCOUNTER → 2024-12-24 15:01 | Outpatient (BNV) | payer MEDICAID, SELFPAY | PROVIDERS: PCP Internal Medicine; Visit Provider Internal Medicine | DX: I42.2 Other hypertrophic cardiomyopathy (principal); I35.1 Nonrheumatic aortic (valve) insufficiency; I36.1 Nonrheumatic tricuspid (valve) insufficiency; Z95.2 Presence of prosthetic heart valve | CPT/HCPCS: 93306 ==

== ENCOUNTER 2025-05-07 13:18 | Outpatient (AMB) | payer MEDICAID, SELFPAY ==
[2025-05-07 13:45] VITALS: BP 122/62; PULSE 84; BMI 25.5
--- NOTE | 2025-05-07 13:45 | MHC.OFFVIS ---
Vital Signs 05/07/25 13:45 Height 5 ft 8 in Weight 167 lb 8.821 oz BMI 25.5 BP 122/62 Blood Pressure Location Lt brachial Position Sitting Pulse 84 Pulse Source Pulse Oximeter Intake Visit Reasons: 6m follow up Allergies No Known Allergies (No Known Allergies*) Allergy (Verified 08/15/23 14:43) Medication List - Last Reconciled 05/07/25 by Brian Vance MD aspirin 81 mg PO DAILY atorvastatin 80 mg PO DAILY levothyroxine 50 mcg PO DAILY metoprolol succinate ER 25 mg PO DAILY warfarin 5 mg PO DAILY HPI Comments Details: Lupis returns for follow-up. Fairly complex history with Marfan syndrome and various cardiac and vascular issues. We have followed her for the last decade or so. To recall, she has Marfan syndrome and had symptomatic severe mitral regurgitation. This led to mitral valve replacement in 2015. She was doing reasonably okay but had an episode of stroke. This apparently happened in the setting of missing a few Coumadin doses from lack of transport. Then she was taken to [facility]. She recovered well without any significant residual deficits. Then we referred her to [facility] for follow-up of the thoracic aneurysm. It seems that she underwent surgery for the same last year. Seems to have recovered well. She had another appointment follow-up last week and we need to get that report. Otherwise, from the cardiac standpoint he is doing fine. No new concerns. [facility] Medical History Arterial hypotension Cholecystectomy planned Embolic stroke Marfans syndrome NICM (nonischemic cardiomyopathy) PAF (paroxysmal atrial fibrillation) Surgical History H/O eye surgery Status post mitral valve replacement with metallic valve History of cardiac catheterization History of abdominal aortic aneurysm repair History of aortic valve repair History of mitral valve replacement (~2015) Family History Father CVD (cardiovascular disease) Mother Hypertension Social History Household Members: Significant Other and Children Household Members Other:: Boyfriend and son Housing: Apartment Alcohol intake: never Patient Tobacco Use Status: Never used Tobacco Review of Systems Const Denies weakness ENT Denies dizziness Card Denies chest pain, Denies chest pain with activity, Denies syncope, Denies rapid heart rate, Denies pedal edema, Denies edema, Denies leg edema, Denies lightheadedness, Denies palpitations, Denies dyspnea, Denies dyspnea on exertion and Denies orthopnea Resp Denies cough, Denies dyspnea and Denies dyspnea on exertion GI Denies hematochezia and Denies change in stool character Musc Denies abnormal gait, Denies muscle cramps, Denies muscle weakness, Denies numbness, Denies radiating pain into limb and Denies tingling Neuro Denies abnormal gait, Denies dizziness, Denies syncope, Denies numbness, Denies tingling and Denies weakness Endo Denies palpitations Physical Exam Vital Signs: Last Vital Signs Pulse 84 05/07/25 13:45 BP 122/62 05/07/25 13:45 BMI result Body Mass Index 25.5 Const General: comfortable and no acute distress Orientation/consciousness: patient oriented x3 HEENT Other: Unremarkable Head: Yes normal to inspection Neck Neck: Yes normal visual inspection Chest Chest palpation & inspection: normal inspection of the chest Resp Auscultation: clear to auscultation bilaterally Cardio Other: Prosthetic heart sounds present. Heart sounds: Murmur heart sound present systolic GI Palpation (GI): Soft to palpation Back/Spine/Pelvis Other: unremarkable Skin General skin exam: no rashes or lesions noted Neuro General: patient oriented x3 Extrem General: Yes normal to inspection Psych Mental Status: mental status grossly normal Assessment & Plan Assessment & Plan (1) Marfans syndrome: Code(s): Q87.40 - Marfan syndrome, unspecified Category: Medical Plan: She has multiple clinical findings of Marfan syndrome. Will need lifelong follow-up. Should avoid all future pregnancies. Has been discussed many times in the past. (2) Status post mitral valve replacement with metallic valve: Code(s): Z95.4 - Presence of other heart-valve replacement Category: Surgical Plan: Stable on echocardiogram. (3) Dissection of aorta: Code(s): I71.00 - Dissection of unspecified site of aorta Plan: Followed up at [facility] vascular surgery. In 2023, underwent endovascular repair of thoracic aorta at [facility]. We will get recent notes. (4) NICM (nonischemic cardiomyopathy): Code(s): I42.8 - Other cardiomyopathies Category: Medical Plan: In the last echocardiogram, LVEF was 50%. In the past as low as 30-40%. Continue beta-blockers. Not able to give any other medications like Entresto as she also runs very low blood pressures. Was also taking midodrine in the past but not listed anymore. Today's blood pressure seems okay. (5) PAF (paroxysmal atrial fibrillation): Code(s): I48.0 - Paroxysmal atrial fibrillation Category: Medical Plan: No recent episodes. (6) Embolic stroke: Code(s): I63.9 - Cerebral infarction, unspecified Category: Medical Plan: This happened in the setting of missing some Coumadin doses due to lack of transport. INR during admission was 1.7. Target should be closer to 3. CTA had then shown abrupt right M1 cut off. Attempted interventional treatment but not successful. She was intubated and treated in the ICU. CT brain had shown infarct in the right side MCA territory. Blood cultures were negative. ESR not elevated. Mild CRP elevation considered to be nonspecific. She is fully recovered from the above episode and no recent issues. Coding Level of Care Code Est Pt Level 4 (91666) Complex EM visit Add On G2211 Diagnoses Marfans syndrome Q87.40 Status post mitral valve replacement with metallic valve Z95.4 Dissection of aorta I71.00 NICM (nonischemic cardiomyopathy) I42.8 PAF (paroxysmal atrial fibrillation) I48.0 Embolic stroke I63.9
--- OUTSIDE RECORDS SUMMARY | 2025-05-07 14:11 | XMS_ITS | Encounter Summary ---
Author Organization [facility] Address [address] [place] [address] Phone Care Team Providers Care Beet End Supervisor Name Role Phone Rosanne Reynolds MD Primary Care Provider [phone] Keri Ball [facility] [email or web address] Encounter Details Date Type Department Care Team (Late st Contact Info) Description 03/22/2024 Procedure Pass [facility] [address] [place] [address] Social History Tobacco Use Types Packs/Day Years Used Date Smoking Tobacco: Former Smokeless Tobacco: Former Comments:smoked for short ti me as a teenager (1-2 years) then quit. Alcohol Use Standard Drinks/Week Comments Never 0 (1 standard drink = 0.6 oz pur e alcohol) Education Answer Date Recorded Are you interested in more education? Not on kahlil e 01/13/2023 Are you concerned about learning? Not on file 01/13/2023 No 01/13/2023 No 01/13/2023 Food Answer Date Recorded Within the past 6 months we worried whether our food would run out before we got money to buy more. Never True 03/15/2024 Within the past 6 months the food we bought just didn't last and we didn't have enough money to get more. Never True Residential Stability Answer Date Recor ded What is your housing situation today? I have deonte malik 03/15/2024 How many times have you move d in the past 12 months? Zero (I did not move) 03/15/2024 Paying for Meds Answer Date Recorded Do you have trouble paying for medicines? No 03/15/2024 Paying Utility Bills Answer Date Record ed Do you have trouble paying your heating or elect ricity bill? No 03/15/2024 Transportation Answer Date Recorded Has the lack of transportati on kept you from medical appointments or from getting medications? No 03/15/2024 Digital Access Answer Date Recorded No 03/15/2024 Yes 03/15/2024 Do you have reliable internet access at home? Ye s 03/15/2024 Do you have a device (e.g., phone, tablet, computer) with a working camera? Yes 03/15/2024 Intimate Partner Violence Answer Date R ecorded Are you denied basic needs s uch as food, clothing, or medical care? No 03/16/2024 In the past 12 months have y ou been in a relationship with a person who hurts, threatens, or tries to control you? No 03/16/2024 Are you denied basic needs s uch as food, clothing, or medical care? No 03/16/2024 In the past 12 months have y ou been in a relationship with a person who hurts, threatens, or tries to control you? No 03/16/2024 Comments Unknown Sex and Gender Information Value Date Recorded Sex Assigned at Female 06/29/2022 9:44 AM EDT Legal Sex Female 11:58 AM EST Gender Identity Female 06/29/2022 9:44 AM EDT Sexual Orientation Straight 06/29/2022 9: 44 AM EDT Occupation Industry Job Start Date Job End Date none Not on file Not on file Not on file documented as of this encounter Plan of Treatment Not on file documented as of this encounter Visit Diagnoses Not on filedocumented in this encounter Additional Health Concerns Assessment Noted Time PHQ-2 Depression Total Score: 1 01/14/20 21 10:44 AM EDT documented as of this encounter Care Teams Beet End Supervisor Relationship Specialty Start Date End Date Rosanne Reynolds MD [address] [place] [address] [email or web address] PCP - General Internal Medicine 12/21/20 Keri Ball, TRANSLATION DIRECTOR [address] [place] [id number] [email or web address] Social Work 07/24/24 08/01/24 documented as of this encounter Additional Source Comments The information contained in this document represents components of the legal health record. It is not the complete legal health record.[facility]
== END 2025-05-07 14:09 | disposition home or self-care (01) ==
LOC: HO.HCS 13:18
PROVIDERS: PCP Internal Medicine; Visit Provider Internal Medicine
DX: Q87.40 Marfan syndrome, unspecified (principal); Z95.4 Presence of other heart-valve replacement; I71.00 Dissection of unspecified site of aorta; I42.8 Other cardiomyopathies; I48.0 Paroxysmal atrial fibrillation; I63.9 Cerebral infarction, unspecified
CPT/HCPCS: 99214; G2211

== ENCOUNTER → 2025-05-07 13:18 | Outpatient (BNVA) | payer MEDICAID, SELFPAY | PROVIDERS: PCP Internal Medicine; Visit Provider Internal Medicine | DX: I48.0 Paroxysmal atrial fibrillation (principal); Q87.40 Marfan syndrome, unspecified; Z95.4 Presence of other heart-valve replacement; I71.00 Dissection of unspecified site of aorta; I63.9 Cerebral infarction, unspecified; I42.8 Other cardiomyopathies | CPT/HCPCS: 99212 ==